=== PATIENT | female | born 1995 | race African-American/Black ===

== ENCOUNTER 2018-07-05 16:32 | Emergency (ER) | payer OTHER ==
[2018-07-05 16:41] VITALS: BP 158/71; PULSE 78; TEMP 98.1; BMI 27.4
--- NOTE | 2018-07-05 16:42 | PDOC ---
Rapid Medical Evaluation Chief Complaint: Vaginal Bleeding Time Seen by Provider: 07/05/18 16:41 Medical Evaluation: 07/05/18 16:41 I have performed a brief in-person evaluation of this patient. The patient presents with a chief complaint of: [facility], now abdominal cramping "unbearable." vag bleeding, not more than one pad hourly, took ibuprofen for pain an hour ago. LMP 4/3, Pertinent physical exam findings: well appearing I have ordered the following: labs, us The patient will proceed to the ED for further evaluation.
== END 2018-07-05 17:50 | disposition left against medical advice (07) ==
LOC: JER 16:32
DX: Z53.21 Procedure and treatment not carried out due to patient leaving prior to being seen by health care provider (principal)
CPT/HCPCS: 99281-25